=== PATIENT | male | born 1960 | race Caucasian/White ===

== ENCOUNTER → 2017-11-19 | Day surgery (SDC) | payer OTHER ==
[2014-04-02 18:17] VITALS: BP 152/89
[~2017-11-19] MED LIST: CIPRO 100MG TA100 MG; FLOMAX0.4 MG PO; HYDROCODONE BIT1 T46 PO; ULTRAM 50MG TAB50 MG PO
== END ==
LOC: MSO 08:12
DX: K92.1 Melena (principal); K64.0 First degree hemorrhoids; G47.33 Obstructive sleep apnea (adult) (pediatric); E11.9 Type 2 diabetes mellitus without complications; Z79.84 Long term (current) use of oral hypoglycemic drugs; Z87.891 Personal history of nicotine dependence
CPT/HCPCS: 00812; J2704; J7030

== ENCOUNTER → 2018-05-20 | Outpatient (CLI) | payer OTHER ==
[2014-04-02 18:17] VITALS: BP 152/89
== END ==
LOC: EDSTATUS 08:30 → PT 08:30
DX: Z01.818 Encounter for other preprocedural examination (principal); M16.12 Unilateral primary osteoarthritis, left hip

== ENCOUNTER 2018-07-24 08:30 | Outpatient (RCR) | payer OTHER ==
[2014-04-02 18:17] VITALS: BP 152/89
== END 2018-07-24 09:00 | disposition home or self-care (01) ==
LOC: PT 08:30
DX: Z47.1 Aftercare following joint replacement surgery (principal); Z96.642 Presence of left artificial hip joint

== ENCOUNTER 2021-08-11 08:32 | Outpatient (RCR) | payer OTHER | END 2021-08-22 | disposition home or self-care (01) | LOC: PT | DX: Z96.659 Presence of unspecified artificial knee joint (principal) ==

== ENCOUNTER 2021-08-24 09:00 | Outpatient (RCR) | payer OTHER | END 2021-09-19 | disposition home or self-care (01) | LOC: PT | DX: Z96.659 Presence of unspecified artificial knee joint (principal) ==

== ENCOUNTER 2021-09-21 08:44 | Outpatient (RCR) | payer OTHER | END 2021-10-20 | disposition home or self-care (01) | LOC: PT | DX: Z96.659 Presence of unspecified artificial knee joint (principal) ==

== ENCOUNTER 2021-10-24 08:30 | Outpatient (RCR) | payer OTHER | END 2021-11-19 | disposition home or self-care (01) | LOC: PT | DX: M25.569 Pain in unspecified knee (principal); Z96.659 Presence of unspecified artificial knee joint ==

== ENCOUNTER 2021-11-21 08:55 | Outpatient (RCR) | payer OTHER | END 2021-12-20 | disposition still patient (30) | LOC: PT | DX: Z96.659 Presence of unspecified artificial knee joint (principal) ==